=== PATIENT | male | born 1985 | race Caucasian/White ===

== ENCOUNTER 2017-11-27 15:19 | Emergency (ER) | payer SELFPAY ==
[2017-11-27] MEDS ORDERED: Amoxicillin/Potassium Clav 875 MG TAB ONE (15:57)
== END 2017-11-27 16:10 | disposition home or self-care (01) ==
LOC: MADERS 15:19
DX: L02.01 Cutaneous abscess of face (principal); F17.210 Nicotine dependence, cigarettes, uncomplicated
CPT/HCPCS: 10060